=== PATIENT | female | born 1975 | race Native Hawaiian/Other Pacific Islander ===

== ENCOUNTER 2017-01-08 16:39 | Emergency (ER) | payer BC ==
[2017-01-08 16:52] VITALS: RESP 18; TEMP 98.4
[2017-01-08] MEDS ORDERED: SODIUM CHLORIDE 0.9% 1,000 ML IV STA ×2 (17:16)
[2017-01-08] MEDS ORDERED: PANTOPRAZOLE 40 MG/10 ML VIAL IVP STA (17:16)
--- NOTE | 2017-01-08 17:19 | ED ---
General Adult HPI - General Chief complaint: GI Bleed Stated complaint: Blood in Stool Time Seen by Provider: 01/08/17 17:09 Source: patient, RN notes reviewed Mode of arrival: ambulatory Limitations: no limitations - History of Present Illness Initial comments: Patient presented 41-year-old female significant past medical history for rheumatoid arthritis, fibromyalgia, who presents emergency room today with a chief complaint of black tarry stool that occurred this morning. Patient does admit that she currently does take methotrexate. She states she is a dosage to 10 mg just last night. Patient does admit that he noticed some cramping in her abdomen this morning and dark bowel movement. States she called her finance vice president who advised her to come here to the emergency room for further evaluation for possible GI bleed. Patient admits to history of a gastric sleeve. She admits to nausea. She denies any other complaints or symptoms. Patient denies any recent fever, chills, shortness of breath, chest pain, back pain, vomiting, numbness or tingling, dysuria or hematuria, constipation, headaches or visual changes, or any other complaints. - Related Data Home Medications Medication Instructions Recorded Confirmed Ferrous Sulfate [Feosol] 325 mg PO DAILY 01/08/17 01/08/17 Gabapentin [Neurontin] 300 mg PO HS 01/08/17 01/08/17 Multivitamins, Thera [Multivitamin 1 tab PO DAILY 01/08/17 01/08/17 (formulary)] traMADol HCL [Ultram] 50 mg PO BID PRN 01/08/17 01/08/17 Previous Rx's Medication Instructions Recorded Amoxicillin/Potassium Clav 1 each PO Q12HR #20 tab 01/08/17 [Augmentin 875-125 Tablet] Allergies Allergy/AdvReac Type Severity Reaction Status Date / Time ciprofloxacin [From Cipro] Allergy Swelling Verified 01/08/17 17:33 nitrofurantoin Allergy "numbness" Verified 01/08/17 17:33 [From Macrodantin] Sulfa (Sulfonamide Allergy Unknown Verified 01/08/17 17:33 Antibiotics) Childhood Review of Systems ROS Statement: Those systems with pertinent positive or pertinent negative responses have been documented in the HPI. ROS Other: All systems not noted in ROS Statement are negative. Past Medical History Past Medical History: Fibromyalgia Additional Past Medical History / Comment(s): kidney stones History of Any Multi-Drug Resistant Organisms: None Reported Past Surgical History: Bariatric Surgery, Cholecystectomy Additional Past Surgical History / Comment(s): D&C, lithrotripsy Past Psychological History: No Psychological Hx Reported Smoking Status: Light tobacco smoker Past Alcohol Use History: Occasional Past Drug Use History: None Reported General Exam - General Exam Comments Initial Comments: General: The patient is awake and alert, in no distress, and does not appear acutely ill. Eye: Pupils are equal, round and reactive to light, extra-ocular movements are intact. No nystagmus. There is normal conjunctiva bilaterally. No signs of icterus. Ears, nose, mouth and throat: There are moist mucous membranes and no oral lesions. Neck: The neck is supple, there is no tenderness or JVD. Cardiovascular: There is a regular rate and rhythm. No murmur, rub or gallop is appreciated. Respiratory: Lungs are clear to auscultation, respirations are non-labored, breath sounds are equal. No wheezes, stridor, rales, or rhonchi. Gastrointestinal: Soft, non-distended, non-tender abdomen without masses or organomegaly noted. There is no rebound or guarding present. No CVA tenderness. Bowel sounds are unremarkable. Musculoskeletal: Normal ROM, no tenderness. Strength 5/5. Sensation intact. Pulses equal bilaterally 2+. Neurological: A&O x 3. CN II-XII intact, There are no obvious motor or sensory deficits. Coordination appears grossly intact. Speech is normal. Skin: Skin is warm and dry and no rashes or lesions are noted. Psychiatric: Cooperative, appropriate mood & affect, normal judgment. Limitations: no limitations Course Vital Signs 01/08/17 16:50 Temperature 98.4 F Pulse Rate 84 Respiratory 18 Rate Blood Pressure 174/90 O2 Sat by Pulse 98 Oximetry Medical Decision Making - Medical Decision Making Case discussed in detail with attending physician Dr. Pedroza. 41-year-old female presented to the emergency room for black tarry stool times one earlier today. Does admit some cramping type pain in the abdomen. At this time patient reexamined and feels comfortable. Abdomen soft nontender. Labs been reviewed. Hemoglobin is 10.4. Compared to previous hemoglobin back in July of last year and is the exact same. Patient does admit to history of anemia and is on iron supplements. Patient increased methotrexate last night. At this time requiring is negative. Abdomen soft. Patient's vital stable. Patient's urinalysis does show positive nitrate. She admits some symptoms of dysuria will be started on antibiotic. Advised that antibiotic may cause diarrhea. Advised return if there is any obvious bloody bowel movements or any increase or worsening symptoms. Advised follow-up the family doctor in the next 2 days. - Lab Data Result diagrams: 01/08/17 17:30 01/08/17 17:30 Lab Results 01/08/17 01/08/17 01/08/17 Range/Units 17:30 17:30 17:30 WBC 6.8 (3.8-10.6) k/uL RBC 4.52 (3.80-5.40) m/uL Hgb 10.4 L (11.4-16.0) gm/dL Hct 34.6 (34.0-46.0) % MCV 76.5 L (80.0-100.0) fL MCH 22.9 L (25.0-35.0) pg MCHC 30.0 L (31.0-37.0) g/dL RDW 18.2 H (11.5-15.5) % Plt Count 331 (150-450) k/uL Neutrophils % 72 % Lymphocytes % 20 % Monocytes % 5 % Eosinophils % 1 % Basophils % 1 % Neutrophils # 4.8 (1.3-7.7) k/uL Lymphocytes # 1.3 (1.0-4.8) k/uL Monocytes # 0.3 (0-1.0) k/uL Eosinophils # 0.1 (0-0.7) k/uL Basophils # 0.1 (0-0.2) k/uL Hypochromasia Moderate Anisocytosis Slight Microcytosis Slight PT (9.0-12.0) sec INR (<1.1) APTT (22.0-30.0) sec Sodium 138 (137-145) mmol/L Potassium 4.3 (3.5-5.1) mmol/L Chloride 105 (98-107) mmol/L Carbon Dioxide 23 (22-30) mmol/L Anion Gap 10 mmol/L BUN 14 (7-17) mg/dL Creatinine 0.59 (0.52-1.04) mg/dL Est GFR (MDRD) Af Amer >60 (>60 ml/min/1.73 sqM) Est GFR (MDRD) Non-Af >60 (>60 ml/min/1.73 sqM) Glucose 85 (74-99) mg/dL Calcium 9.4 (8.4-10.2) mg/dL Total Bilirubin 0.5 (0.2-1.3) mg/dL AST 32 (14-36) U/L ALT 26 (9-52) U/L Alkaline Phosphatase 72 (38-126) U/L Total Protein 7.9 (6.3-8.2) g/dL Albumin 4.5 (3.5-5.0) g/dL Urine Color Urine Appearance (Clear) Urine pH (5.0-8.0) Ur Specific [place] (1.001-1.035) Urine Protein (Negative) Urine Glucose (UA) (Negative) Urine Ketones (Negative) Urine Blood (Negative) Urine Nitrite (Negative) Urine Bilirubin (Negative) Urine Urobilinogen (<2.0) mg/dL Ur Leukocyte Esterase (Negative) Urine RBC (0-5) /hpf Urine WBC (0-5) /hpf Ur Squamous Epith Cells (0-4) /hpf Urine Bacteria (None) /hpf Urine Mucus (None) /hpf Urine HCG, Qual (Not Detectd) Stool Occult Blood Negative (Negative) 01/08/17 01/08/17 01/08/17 Range/Units 17:30 17:30 17:30 WBC (3.8-10.6) k/uL RBC (3.80-5.40) m/uL Hgb (11.4-16.0) gm/dL Hct (34.0-46.0) % MCV (80.0-100.0) fL MCH (25.0-35.0) pg MCHC (31.0-37.0) g/dL RDW (11.5-15.5) % Plt Count (150-450) k/uL Neutrophils % % Lymphocytes % % Monocytes % % Eosinophils % % Basophils % % Neutrophils # (1.3-7.7) k/uL Lymphocytes # (1.0-4.8) k/uL Monocytes # (0-1.0) k/uL Eosinophils # (0-0.7) k/uL Basophils # (0-0.2) k/uL Hypochromasia Anisocytosis Microcytosis PT 10.2 (9.0-12.0) sec INR 1.0 (<1.1) APTT 23.7 (22.0-30.0) sec Sodium (137-145) mmol/L Potassium (3.5-5.1) mmol/L Chloride (98-107) mmol/L Carbon Dioxide (22-30) mmol/L Anion Gap mmol/L BUN (7-17) mg/dL Creatinine (0.52-1.04) mg/dL Est GFR (MDRD) Af Amer (>60 ml/min/1.73 sqM) Est GFR (MDRD) Non-Af (>60 ml/min/1.73 sqM) Glucose (74-99) mg/dL Calcium (8.4-10.2) mg/dL Total Bilirubin (0.2-1.3) mg/dL AST (14-36) U/L ALT (9-52) U/L Alkaline Phosphatase (38-126) U/L Total Protein (6.3-8.2) g/dL Albumin (3.5-5.0) g/dL Urine Color Yellow Urine Appearance Cloudy H (Clear) Urine pH 6.5 (5.0-8.0) Ur Specific [place] 1.013 (1.001-1.035) Urine Protein Negative (Negative) Urine Glucose (UA) Negative (Negative) Urine Ketones Negative (Negative) Urine Blood Moderate H (Negative) Urine Nitrite Positive H (Negative) Urine Bilirubin Negative (Negative) Urine Urobilinogen <2.0 (<2.0) mg/dL Ur Leukocyte Esterase Negative (Negative) Urine RBC 1 (0-5) /hpf Urine WBC 1 (0-5) /hpf Ur Squamous Epith Cells 3 (0-4) /hpf Urine Bacteria Many H (None) /hpf Urine Mucus Rare H (None) /hpf Urine HCG, Qual Not Detected (Not Detectd) Stool Occult Blood (Negative) Disposition Clinical Impression: UTI (urinary tract infection), Black stool Disposition: HOME SELF-CARE Condition: Good Instructions: Gastrointestinal Bleeding (ED) Additional Instructions: Please use antibiotics as prescribed. Please follow-up with family doctor in the next 2 days. Please return to emergency room if the symptoms increase or worsen or for any other concerns. Prescriptions: Amoxicillin/Potassium Clav [Augmentin 875-125 Tablet] 1 each PO Q12HR #20 tab Time of Disposition: 18:30
[2017-01-08 17:45] LABS: Anisocytosis Slight; Basophils # (A) 0.1 k/uL (0-0.2); Basophils % (A) 1 %; CH 23.2; CHCM 30.5; Eosinophils # (A) 0.1 k/uL (0-0.7); Eosinophils % (A) 1 %; HCT 34.6 % (34.0-46.0); HDW 2.77; HGB 10.4 gm/dL (11.4-16.0); Hypochromasia Moderate; Luc # (Auto) 0.11; Luc % (Auto) 2; Lymphocytes # (A) 1.3 k/uL (1.0-4.8); Lymphocytes % (A) 20 %; MCH 22.9 pg (25.0-35.0); MCV 76.5 fL (80.0-100.0); Mean Platelet Volume 7.3; Microcytosis Slight; Monocytes # (A) 0.3 k/uL (0-1.0); Monocytes % (A) 5 %; Neutrophils # (A) 4.8 k/uL (1.3-7.7); Neutrophils % (A) 72 %; RBC 4.52 m/uL (3.80-5.40); RDW 18.2 % (11.5-15.5); WBC 6.8 k/uL (3.8-10.6); WBC (Perox) 6.79
[2017-01-08 17:53] LABS: Appearance,Urine Cloudy (Clear); Bacteria,Urine Many /hpf; Bilirubin,Urine Negative (Negative); Glucose,Urine (UA) Negative (Negative); Ketones,Urine Negative (Negative); Leukocyte Esterase,Urine Negative (Negative); Mucus,Urine Rare /hpf; Nitrite,Urine Positive (Negative); PH, Urine 6.5 (5.0-8.0); Particle Count 7528; Protein,Urine Negative (Negative); RBC,Urine 1 /hpf (0-5); Specific Gravity,Urine 1.013 (1.001-1.035); Squamous Epithelial Cell,Urine 3 /hpf (0-4); UA Billing (MACRO vs. MICRO) MICRO; Urobilinogen,Urine <2.0 mg/dL (<2.0); WBC,Urine 1 /hpf (0-5)
[2017-01-08 17:55] LABS: ALT 26 U/L (9-52); AST 32 U/L (14-36); Alkaline Phosphatase 72 U/L (38-126); Anion Gap 10 mmol/L; Blood Urea Nitrogen 14 mg/dL (7-17); Calcium 9.4 mg/dL (8.4-10.2); Carbon Dioxide 23 mmol/L (22-30); Chloride 105 mmol/L (98-107); Glucose 85 mg/dL (74-99); Non-African American GFR(MDRD) >60 (>60 ml/min/1.73 sqM); Potassium 4.3 mmol/L (3.5-5.1); Sodium 138 mmol/L (137-145); Total Bilirubin 0.5 mg/dL (0.2-1.3); Total Protein 7.9 g/dL (6.3-8.2)
[2017-01-08 17:56] LABS: Partial Thromboplastin Time 23.7 sec (22.0-30.0); Prothrombin Time 10.2 sec (9.0-12.0)
--- NOTE | 2017-01-08 18:07 | XR ---
EXAMINATION TYPE: XR KUB DATE OF EXAM: 01/08/2017 5:58 PM CLINICAL HISTORY: Blood in stool today. History of gastric sleeve surgery. TECHNIQUE: Single supine KUB image of the abdomen is obtained. COMPARISON: None. FINDINGS: Some paucity of bowel gas is seen. Visualized gas is noted in nondistended small and large bowel loops. Pelvic phleboliths are present bilaterally. Lung bases are clear. No pneumoperitoneum is identified. Cholecystectomy clips are seen. Multilevel spurring and spine is present. There is spurr ing in both hip joints noted. IMPRESSION: Overall nonspecific favor nonobstructive bowel gas pattern.
[2017-01-08 18:41] VITALS: BP 159/84; PULSE 59
== END 2017-01-08 18:40 | disposition home or self-care (01) ==
LOC: EC 16:39
DX: N39.0 Urinary tract infection, site not specified (principal); R19.5 Other fecal abnormalities; R10.9 Unspecified abdominal pain; R11.0 Nausea; F17.200 Nicotine dependence, unspecified, uncomplicated; Z79.899 Other long term (current) drug therapy; Z88.1 Allergy status to other antibiotic agents; Z88.2 Allergy status to sulfonamides; Z88.8 Allergy status to other drugs, medicaments and biological substances
CPT/HCPCS: 36415; 80053; 85025; 85610; 85730; 82272; 81001; 81025; 74000; 99285; 96374; 96361; C9113

== ENCOUNTER → 2017-05-14 | Outpatient (CLI) | payer BC ==
[2017-05-14 15:02] LABS: Basophils % (A) 0 %; CH 22.7; CHCM 30.5; Eosinophils # (A) 0.1 k/uL (0-0.7); Eosinophils % (A) 2 %; HCT 32.8 % (34.0-46.0); HDW 2.75; HGB 10.4 gm/dL (11.4-16.0); Hypochromasia Marked; Luc # (Auto) 0.14; Luc % (Auto) 2; Lymphocytes # (A) 1.7 k/uL (1.0-4.8); Lymphocytes % (A) 23 %; MCH 23.8 pg (25.0-35.0); MCHC 31.9 g/dL (31.0-37.0); MCV 74.7 fL (80.0-100.0); Mean Platelet Volume 6.9; Microcytosis Slight; Monocytes # (A) 0.4 k/uL (0-1.0); Monocytes % (A) 5 %; Neutrophils # (A) 5.1 k/uL (1.3-7.7); Neutrophils % (A) 69 %; RBC 4.38 m/uL (3.80-5.40); WBC 7.4 k/uL (3.8-10.6); WBC (Perox) 7.91
== END | disposition home or self-care (01) ==
LOC: LABPAT 14:26
PROVIDERS: ATTEND Obstetrics & Gynecology
DX: Z01.812 Encounter for preprocedural laboratory examination (principal)
CPT/HCPCS: 85025

== ENCOUNTER 2017-05-17 06:34 | Day surgery (SDC) | payer BC ==
[2017-05-10 15:16] VITALS: BMI 29.2
--- NOTE | 2017-05-16 21:10 | P.HPOB ---
History of Present Illness H&P Date: 05/16/17 Chief Complaint: Menorrhagia with irregular cycle, dysmenorrhea This is a 42-year-old female 4 para 3 who presents for dilation and curettage with hysteroscopy and NovaSure endometrial ablation secondary to menorrhagia with irregular cycle and dysmenorrhea. She complains of an approximately 6 year history of heavy menses and intermenstrual spotting for a week before her menses. She also has abdominal cramping and painful intercourse for the last couple months. Her pelvic ultrasound showed a uterus measuring 10.8 x 5.8 x 5.4 cm with a heterogeneous pattern consistent with fibroids. She had a small complex cyst on her right ovary measuring 1.9 cm. Endometrial stripe thickness was 1.2 cm. Her menses are occurring approximately every 2-3 weeks and lasting at least 5 days with the second and third day very heavy. Obstetrical history: . History of 1 vaginal delivery and 2 deliveries. History of 1 miscarriage. Gynecologic history: She has a history of a tubal ligation. 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 Review of Systems Constitutional: Denies chills, Denies fever Eyes: denies blurred vision, denies pain Ears, nose, mouth and throat: Denies sore throat Cardiovascular: Denies chest pain, Denies shortness of breath Respiratory: Denies cough Gastrointestinal: Reports abdominal pain, Denies diarrhea, Denies nausea, Denies vomiting Genitourinary: Reports dysmenorrhea, Reports dyspareunia, Reports pelvic pain Menstruation: Reports cycle < 21 days, Reports menses variable, Reports period heavy Musculoskeletal: Reports low back pain, Reports muscle cramps, Reports myalgias Psychiatric: Denies anxiety, Denies depression Endocrine: Reports fatigue Past Medical History Past Medical History: Fibromyalgia, Rheumatoid Arthritis (RA) Additional Past Medical History / Comment(s): heavy frequent periods, hx of fibroids, kidney stones, hx of diabetes, htn, hyperlipidemia, none after 75lb wt loss post bariatric sx History of Any Multi-Drug Resistant Organisms: None Reported Past Surgical History: Bariatric Surgery, Section (Times 2), Cholecystectomy, Tubal Ligation Additional Past Surgical History / Comment(s): gastric sleeve, D&C, lithrotripsy , laproscopic sx Past Anesthesia/Blood Transfusion Reactions: Previous Problems w/ Anesthesia Additional Past Anesthesia/Blood Transfusion Reaction / Comment(s): woke up during sx, hx of H/A post op, and increased b/p Smoking Status: Current every day smoker Past Alcohol Use History: Occasional Past Drug Use History: None Reported - Past Family History Mother Family Medical History: Diabetes Mellitus, Hypertension Medications and Allergies Home Medications Medication Instructions Recorded Confirmed Type Gabapentin [Neurontin] 300 mg PO HS 01/08/17 05/10/17 History traMADol HCL [Ultram] 50 mg PO BID PRN 01/08/17 05/10/17 History HYDROcodone/APAP 5-325MG [Mooers 1 tab PO Q6HR PRN 05/10/17 05/10/17 History 5-325] Allergies Allergy/AdvReac Type Severity Reaction Status Date / Time ciprofloxacin [From Cipro] Allergy Swelling Verified 05/10/17 15:08 nitrofurantoin Allergy "numbness" Verified 05/10/17 15:08 [From Macrodantin] Sulfa (Sulfonamide Allergy Unknown Verified 05/10/17 15:08 Antibiotics) Childhood Exam Osteopathic Statement: *. No significant issues noted on an osteopathic structural exam other than those noted in the History and Physical/Consult. HEENT: Within normal limits Heart: Regular rate and rhythm Lungs: Clear to auscultation bilaterally Abdomen: Soft, nontender Pelvic exam: Uterus is slightly enlarged, nontender, and retroverted position. No adnexal masses or tenderness were noted. Extremities: Negative Homans Assessment and Plan (1) Menorrhagia with irregular cycle Status: Acute (2) Dysmenorrhea Status: Acute Plan: Proceed with dilation and curettage with hysteroscopy and NovaSure endometrial ablation. I have discussed the risks, benefits, and alternative therapies for the above- mentioned procedure and for both sedation/anesthesia as well as necessary blood products administration, if indicated, as they pertain to this patient. The patient has indicated her understanding and acceptance of the risks and procedures discussed.
[~2017-05-17 06:34] MED LIST: DEXAMETHASONE SOD PHOSPHATE 10 MG/ML 1 ML VIAL IV ONE; HYDROmorphone 1 MG/ML 1 ML SYRINGE IVP PRN; LACTATED RINGERS 1,000 ML IV SCH; MIDAZOLAM 2 MG/2 ML VIAL IV PRN; ONDANSETRON 4 MG/2 ML VIAL IVP ONE; Pre Op ABX Message 1 EACH MISC MISCELLANE ONE; SCOPOLAMINE 1.5MG/72HR PATCH TRANSDERM ONE
[2017-05-17 06:50] VITALS: RESP 16
[2017-05-17] MEDS ORDERED: LIDOCAINE 1% 20 ML VIAL (10MG/ML) FOR IV START INTRADERMA ONE (06:50)
[2017-05-17] MEDS ORDERED: PROPOFOL 10 MG/ML 20 ML VIAL IV ONE (07:19)
[2017-05-17] MEDS ORDERED: MIDAZOLAM 2 MG/2 ML VIAL ONE (07:19)
[2017-05-17] MEDS ORDERED: LIDOCAINE 1% INJ 10MG/ML (20 ML MDV) ONE (07:19)
[2017-05-17] MEDS ORDERED: fentaNYL (PF) 50 MCG/ML 2 ML AMP ONE (07:19)
[2017-05-17] MEDS ORDERED: LACTATED RINGERS 1,000 ML IV ONE (07:52)
[2017-05-17 08:02] VITALS: TEMP 97
[2017-05-17] MEDS ORDERED: ONDANSETRON 4 MG/2 ML VIAL IVP ONE (08:05)
--- NOTE | 2017-05-17 08:36 | P.OP ---
Date of Procedure: 05/17/17 Preoperative Diagnosis: Menorrhagia with irregular cycle, dysmenorrhea Postoperative Diagnosis: Same Procedure(s) Performed: Hysteroscopy with dilation and curettage and NovaSure endometrial ablation Implants: Anesthesia: other (Mask general) Surgeon: Karmen Seo Estimated Blood Loss (ml): 5 Pathology: other (Endometrial curettings) Condition: stable Disposition: same day Indications for Procedure: This is a 42-year-old female 4 para 3 who presents for dilation and curettage with hysteroscopy and NovaSure endometrial ablation secondary to menorrhagia with irregular cycle and dysmenorrhea. She complains of an approximately 6 year history of heavy menses and intermenstrual spotting for a week before her menses. She also has abdominal cramping and painful intercourse for the last couple months. Her pelvic ultrasound showed a uterus measuring 10.8 x 5.8 x 5.4 cm with a heterogeneous pattern consistent with fibroids. She had a small complex cyst on her right ovary measuring 1.9 cm. Endometrial stripe thickness was 1.2 cm. Her menses are occurring approximately every 2-3 weeks and lasting at least 5 days with the second and third day very heavy. Operative Findings: Uterus is mid position, sounded to 10 cm. Cervix is sounded to 3 cm. No adnexal masses are palpated. Upon hysteroscopy, a relatively uniform endometrial appearance was noted with some return of tissue. Both tubal ostia are visualized. A moderate to large amount of endometrial curettings are obtained. Description of Procedure: The patient is taken to the operating room. She is placed in the dorsal lithotomy position after general anesthesia was given. She is prepped and draped in the normal sterile fashion. Bladder is drained with a catheter and then removed. Pelvic exam is performed under anesthesia. Uterus is found to be mid position with no adnexal masses. She is placed in slight Trendelenburg position. A right angle retractor is used to visualize the cervix. The anterior lip of the cervix is grasped with a single-tooth tenaculum. Cervix is sounded to 3 cm. Uterus is sounded to 10 cm. Cervix is gently dilated with Stearns dilators until a hysteroscope could be passed. Hysteroscopy is performed using normal saline. The above noted findings are noted. Next a polyp forceps is introduced. A moderate amount of tissue was obtained. Next medium-sized size sharp curette was placed. May moderate to large amount of endometrial curettings were obtained. Next NovaSure array was inserted into the endometrial cavity. Length was set at 6.5 cm and width was determined to be 4.5 cm. Next cavity assessment was completed and passed on the first try. Next NovaSure array was fired at 161 [address] for 76 seconds. The array did have a vacuum care at approximately 6 seconds into the impression. The array was removed opened and inspected, and then reinserted. The cavity assessment then completed on the first try and the ablation was continued to a total of 76 seconds. Next the array was removed, inspected and then discarded. Next the hysteroscope was reinserted. Uniform charring was noted. Pictures were taken. Hysteroscope was removed. Single-tooth tenaculum was removed from the anterior lip of the cervix. Minimal bleeding was noted. All other instruments removed from the vagina. Sponge counts were correct. Patient is taken to recovery room in stable condition.
[2017-05-17 09:09] VITALS: BP 141/83; PULSE 74
== END 2017-05-17 09:30 | disposition home or self-care (01) ==
LOC: OR 06:34
PROVIDERS: ATTEND Obstetrics & Gynecology
DX: N92.0 Excessive and frequent menstruation with regular cycle (principal); N92.6 Irregular menstruation, unspecified; N94.6 Dysmenorrhea, unspecified; Z87.42 Personal history of other diseases of the female genital tract; F17.200 Nicotine dependence, unspecified, uncomplicated; Z98.84 Bariatric surgery status; M79.7 Fibromyalgia; M06.9 Rheumatoid arthritis, unspecified; Z79.899 Other long term (current) drug therapy; Z88.1 Allergy status to other antibiotic agents; Z88.2 Allergy status to sulfonamides
CPT/HCPCS: 88305; 58563; J2250; J1100; J2405; J2001; J3010; J1170; J2704

== ENCOUNTER → 2020-04-29 | Outpatient (CLI) | payer BC ==
--- NOTE | 2020-04-29 14:55 | US ---
EXAMINATION TYPE: US kidneys/renal and bladder DATE OF EXAM: 04/29/2020 COMPARISON: NONE CLINICAL HISTORY: N200 CALCULUS OF KIDNEY,R13.29 MICROSCOPIC HEMATURIA. Hematuria HX of stones. EXAM MEASUREMENTS: Right Kidney: 11 x 5.7 x 5.3 cm Left Kidney: 9.5 x 5.0 x 4.4 cm Right Kidney: No hydronephrosis or masses seen Left Kidney: No hydronephrosis or masses seen Bladder: wnl Bilateral Jets seen: Yes There is no evidence for hydronephrosis at this point in time. No nephrolithiasis is seen. No joselyn s are identified. The urinary bladder is anechoic. Bilateral ureteral jets are seen. IMPRESSION: No evidence of hydronephrosis or nephrolithiasis.
== END | disposition home or self-care (01) ==
LOC: RADUSWWP 14:19
PROVIDERS: ATTEND Family Medicine
DX: N20.0 Calculus of kidney (principal); R31.29 Other microscopic hematuria
CPT/HCPCS: 76770

== ENCOUNTER → 2022-10-03 | Outpatient (CLI) | payer BC ==
[2022-10-03 14:34] LABS: Basophils # (A) 0.04 X 10*3/uL (0.00-0.10); Basophils % (A) 0.8 %; Eosinophils # (A) 0.13 X 10*3/uL (0.04-0.35); Eosinophils % (A) 2.4 %; HCT 42.3 % (37.2-46.3); HGB 13.8 g/dL (12.0-15.0); Immature Grans, Automated 0.2 %; Lymphocytes # (A) 1.46 X 10*3/uL (0.90-5.00); Lymphocytes % (A) 27.5 %; MCH 28.8 pg (27.0-32.0); MCHC 32.6 g/dL (32.0-37.0); MCV 88.1 fL (80.0-97.0); Mean Platelet Volume 10.8 fL (9.5-12.2); Monocytes # (A) 0.43 X 10*3/uL (0.20-1.00); Monocytes % (A) 8.1 %; NRBC Per 100 WBC 0 /100 WBCS (0.0-0.0); Neutrophils # (A) 3.24 X 10*3/uL (1.80-7.70); Platelet Count 283 X 10*3/uL (140-440); RDW 12.7 % (11.5-14.5); WBC 5.31 X 10*3/uL (4.50-10.00)
[2022-10-03 14:55] LABS: ALT 22 U/L (8-44); AST 21 U/L (13-35); African American GFR (CKD) 119.8 (60.0-200.0); Albumin 4.6 g/dL (3.8-4.9); Albumin/Globulin Ratio 1.68 (1.60-3.17); Alkaline Phosphatase 64 U/L (41-126); BUN/Creat Ratio 16.95 Ratio (12.00-20.00); Blood Urea Nitrogen 11.8 mg/dL (9.0-27.0); Calcium 9.8 mg/dL (8.7-10.3); Carbon Dioxide 27.9 mmol/L (20.0-27.5); Chloride 102 mmol/L (96-109); Chol/HDL Ratio 2.13 Ratio; Globulin 2.8 g/dL (1.6-3.3); Glucose 94 mg/dL (70-110); LDL Cholesterol,Calculated 89.3 mg/dL (0.0-131.0); Non-African American GFR(CKD) 103.4 (60.0-200.0); Potassium 4.9 mmol/L (3.5-5.5); Sodium 141 mmol/L (135-145); Total Protein 7.4 g/dL (6.2-8.2); VLDL Calculation 14.02 mg/dL (5.00-40.00)
== END | disposition home or self-care (01) ==
LOC: LABWHC1 10:11
PROVIDERS: ATTEND Physician Assistant
DX: I10 Essential (primary) hypertension (principal); F41.1 Generalized anxiety disorder; D64.9 Anemia, unspecified; F17.210 Nicotine dependence, cigarettes, uncomplicated; M79.7 Fibromyalgia
CPT/HCPCS: 36415; 80053; 80061; 84443; 85025

== ENCOUNTER 2023-12-29 13:14 | Observation (INO) | payer BC ==
--- NOTE | 2023-12-29 13:54 | ED ---
General Adult HPI - General Source: patient Mode of arrival: ambulatory <Lencho Powers - Last Filed: 12/29/23 15:47> <José Miguel Marin - Last Filed: 12/29/23 18:55> - General Chief complaint: Chest Pain Stated complaint: High blood pressure, PARKER, CP Time Seen by Provider: 12/29/23 13:44 - History of Present Illness Initial comments: Dictation was produced using [employer] dictation software. please excuse any grammatical, word or spelling errors. Chief Complaint: 48-year-old female presents emergency department with chest pain and high blood pressure History of Present Illness: Patient 48-year-old female she has past medical hist ory of hypertension fibromyalgia and rheumatoid arthritis. Patient was at home she started to have some elevated blood pressure. She also had high blood pressure measurements at home for the last couple days with systolics measuring 190. Patient has history of hypertension takes multiple blood pressure medications. States that the pain is like an ache to her left anterior chest radiates into the left shoulder. No associated diaphoresis or nausea. Patient denies that this pain is sharp or severe. Patient [place] any history of cardiac disease. The ROS documented in this emergency department record has been reviewed and confirmed by me. Those systems with pertinent positive or negative responses have been documented in the HPI. All other systems are other negative and/or noncontributory. (Lencho Powers) - Related Data Home Medications Medication Instructions Recorded Confirmed Gabapentin [Neurontin] 300 mg PO HS 01/08/17 05/17/17 traMADol HCL [Ultram] 50 mg PO BID PRN 01/08/17 05/17/17 HYDROcodone/APAP 5-325MG [[place] 1 tab PO Q6HR PRN 05/10/17 05/17/17 5-325] Allergies Allergy/AdvReac Type Severity Reaction Status Date / Time ciprofloxacin [From Cipro] Allergy Swelling Verified 12/29/23 13:33 nitrofurantoin Allergy "numbness" Verified 12/29/23 13:33 [From Macrodantin] Sulfa (Sulfonamide Allergy Unknown Verified 12/29/23 13:33 Antibiotics) Childhood Review of Systems ROS Other: All systems not noted in ROS Statement are negative. <Lencho Powers - Last Filed: 12/29/23 15:47> ROS Other: All systems not noted in ROS Statement are negative. <José Miguel Marin Rahul - Last Filed: 12/29/23 18:55> ROS Statement: Those systems with pertinent positive or pertinent negative responses have been documented in the HPI. Past Medical History Past Medical History: Fibromyalgia, Rheumatoid Arthritis (RA) Additional Past Medical History / Comment(s): heavy frequent periods, hx of fibroids, kidney stones, hx of diabetes, htn, hyperlipidemia, none after 75lb wt loss post bariatric sx History of Any Multi-Drug Resistant Organisms: None Reported Past Surgical History: Bariatric Surgery, Cholecystectomy Additional Past Surgical History / Comment(s): gastric sleeve, D&C, lithrotri psy, laproscopic sx Past Anesthesia/Blood Transfusion Reactions: Previous Problems w/ Anesthesia Additional Past Anesthesia/Blood Transfusion Reaction / Comment(s): woke up during sx, hx of H/A post op, and increased b/p Past Psychological History: No Psychological Hx Reported Past Alcohol Use History: Occasional Past Drug Use History: None Reported - Past Family History Mother Family Medical History: Diabetes Mellitus, Hypertension <Lencho Powers - Last Filed: 12/29/23 15:47> General Exam <Lencho Powers - Last Filed: 12/29/23 15:47> - General Exam Comments Initial Comments: PHYSICAL EXAM: General Impression: Alert and oriented x3, not in acute distress HEENT: Normocephalic atraumatic, extra-ocular movements intact, pupils equal and reactive to light bilaterally, mucous membranes moist. Cardiovascular: Heart regular rate and rhythm Chest: Able to complete full sentences, no retractions, no tachypnea Abdomen: abdomen soft, non-tender, non-distended, no organomegaly Musculoskeletal: Pulses present and equal in all extremities, no peripheral edema Motor: no focal deficits noted Neurological: CN II-XII grossly intact, no focal motor or sensory deficits noted Skin: Intact with no visualized rashes Psych: Normal affect and mood (Lencho Powers) Course Vital Signs 12/29/23 12/29/23 12/29/23 13:28 16:06 17:50 Temperature 98.2 F 98.2 F Pulse Rate 74 64 67 Respiratory 18 17 20 Rate Blood Pressure 140/84 156/108 181/94 O2 Sat by Pulse 99 97 98 Oximetry EKG Findings - EKG Comments: EKG Findings:: My EKG interpretation: Ventricular rate 62, sinus rhythm,. 147, cures 97, QTc 388. No MD prolongation, no QTC prolongation, no ST or T-wave changes noted. Overall, this EKG is unremarkable <Lencho Powers - Last Filed: 12/29/23 15:47> Medical Decision Making - Lab Data Result diagrams: 12/29/23 14:30 12/29/23 14:30 <Lencho Powers - Last Filed: 12/29/23 15:47> - Lab Data Result diagrams: 12/29/23 14:30 12/29/23 14:30 <José Miguel Marin - Last Filed: 12/29/23 18:55> - Medical Decision Making Was pt. sent in by a medical professional or institution (, PA, RADIOLOGIC TECHNOLOGY INSTRUCTOR, urgent care, hospital, or detention...) When possible be specific @ -No Did you speak to anyone other than the patient for history (EMS, parent, family, police, friend...)? What history was obtained from this source @ -No Did you review nursing and triage notes (agree or disagree)? Why? @ -I reviewed and agree with nursing and triage notes Were old charts reviewed (outside hosp., previous admission, EMS record, old EKG, old radiological studies, urgent care reports/EKG's, detention records)? Report findings @ -No old charts were reviewed Differential Diagnosis (chest pain, altered mental status, abdominal pain women, abdominal pain men, vaginal bleeding, musculoskeletal, weakness, fever, dyspnea, syncope, headache, dizziness, GI bleed, back pain, seizure, CVA, palpatations, mental health)? @ -Differential Chest Pain: Stable Angina, Unstable Angina, STEMI, NSTEMI Aortic Dissection, Pneumothorax, Musculoskeletal, Esophageal Spasm GERD, Cholecystitis, Pancreatitis, Zoster, this is not meant to be an all-inclusive list. EKG interpreted by me (3pts min.). @ -See above X-rays interpreted by me (1pt min.). @ -Chest x-ray is nonacute CT interpreted by me (1pt min.). @ -None done U/S interpreted by me (1pt. min.). @ -None done What testing was considered but not performed or refused? (CT, X-rays, U/S, labs)? Why? @ -None What meds were considered but not given or refused? Why? @ -None Did you discuss the management of the patient with other professionals (professionals i.e. , PA, RADIOLOGIC TECHNOLOGY INSTRUCTOR, lab, RT, psych nurse, medical social worker, desulfurizer hand, teacher, radiation safety officer, case therapist)? Give summary @ -No Was smoking cessation discussed for >3mins.? @ -No Was critical care preformed (if so, how long)? @ -No Were there social determinants of health that impacted care today? How? (Homelessness, low income, unemployed, alcoholism, drug addiction, transportation, low edu. Level, literacy, decrease access to med. care, care home, rehab)? @ -No Was there de-escalation of care discussed even if they declined (Discuss DNR or withdrawal of care, Hospice)? DNR status @ -No What co-morbidities impacted this encounter? (DM, HTN, Smoking, COPD, CAD, Cancer, CVA, ARF, Chemo, Hep., AIDS, mental health diagnosis, sleep apnea, morbid obesity)? @ -None Was patient admitted / discharged? Hospital course, mention meds given and route, prescriptions, significant lab abnormalities, going to OR and other pert inent info. @ -48-year-old female presents to the emergency department atypical chest pain typical features. Vital signs upon arrival are within acceptable limits. Laboratory evaluation is unremarkable. Initial troponin is negative. Chest x- ray is nonacute. Disposition options were discussed with patient. Patient would like to obtain 3-hour troponin to determine final disposition. Patient care signed out to Dr. Marin at 4:00 PM Undiagnosed new problem with uncertain prognosis? @ -No Drug Therapy requiring intensive monitoring for toxicity (Heparin, Nitro, Insulin, Cardizem)? @ -No Were any procedures done? @ -No Diagnosis/symptom? Acute, or Chronic, or Acute on Chronic? Uncomplicated (without systemic symptoms) or Complicated (systemic symptoms)? @ -Chest pain Side effects of treatment? @ -No Exacerbation, Progression, or Severe Exacerbation? @ -No Poses a threat to life or bodily function? How? (Chest pain, USA, NC, pneumonia, PE, COPD, DKA, ARF, appy, cholecystitis, CVA, Diverticulitis, Homicidal, Suicidal, threat to staff... and all critical care pts) @ -yes (Lencho Powers) Patient will be observed for cardiac rule out, serial cardiac enzymes, telemetry, cardiology consultation. Case discussed with Pablo. (José Miguel Marin) - Lab Data Lab Results 12/29/23 12/29/23 12/29/23 Range/Units 14:30 14:30 14:30 WBC 5.6 (3.8-10.6) k/uL RBC 4.93 (3.80-5.40) m/uL Hgb 14.0 (11.4-16.0) gm/dL Hct 43.8 (34.0-46.0) % MCV 89.0 (80.0-100.0) fL MCH 28.5 (25.0-35.0) pg MCHC 32.0 (31.0-37.0) g/dL RDW 13.6 (11.5-15.5) % Plt Count 272 (150-450) k/uL MPV 8.8 Neutrophils % 68 % Lymphocytes % 23 % Monocytes % 5 % Eosinophils % 2 % Basophils % 1 % Neutrophils # 3.8 (1.3-7.7) k/uL Lymphocytes # 1.3 (1.0-4.8) k/uL Monocytes # 0.3 (0-1.0) k/uL Eosinophils # 0.1 (0-0.7) k/uL Basophils # 0.1 (0-0.2) k/uL PT 10.2 (10.0-12.5) sec INR 0.9 (<1.2) APTT 23.6 (22.0-30.0) sec D-Dimer 0.44 (<0.60) mg/L FEU Sodium 140 (137-145) mmol/L Potassium 4.1 (3.5-5.1) mmol/L Chloride 108 H (98-107) mmol/L Carbon Dioxide 25 (22-30) mmol/L Anion Gap 7 mmol/L BUN 10 (7-17) mg/dL Creatinine 0.54 (0.52-1.04) mg/dL Est GFR (CKD-EPI)AfAm >90 (>60 ml/min/1.73 sqM) Est GFR (CKD-EPI)NonAf >90 (>60 ml/min/1.73 sqM) Glucose 93 (74-99) mg/dL Calcium 9.9 (8.4-10.2) mg/dL Magnesium 1.9 (1.6-2.3) mg/dL Total Bilirubin 0.6 (0.2-1.3) mg/dL AST 25 (14-36) U/L ALT 22 (4-34) U/L Alkaline Phosphatase 78 (38-126) U/L Troponin I (0.000-0.034) ng/mL NT-Pro-B Natriuret Pep 75 pg/mL Total Protein 7.9 (6.3-8.2) g/dL Albumin 4.5 (3.5-5.0) g/dL 12/29/23 12/29/23 Range/Units 14:30 17:56 WBC (3.8-10.6) k/uL RBC (3.80-5.40) m/uL Hgb (11.4-16.0) gm/dL Hct (34.0-46.0) % MCV (80.0-100.0) fL MCH (25.0-35.0) pg MCHC (31.0-37.0) g/dL RDW (11.5-15.5) % Plt Count (150-450) k/uL MPV Neutrophils % % Lymphocytes % % Monocytes % % Eosinophils % % Basophils % % Neutrophils # (1.3-7.7) k/uL Lymphocytes # (1.0-4.8) k/uL Monocytes # (0-1.0) k/uL Eosinophils # (0-0.7) k/uL Basophils # (0-0.2) k/uL PT (10.0-12.5) sec INR (<1.2) APTT (22.0-30.0) sec D-Dimer (<0.60) mg/L FEU Sodium (137-145) mmol/L Potassium (3.5-5.1) mmol/L Chloride (98-107) mmol/L Carbon Dioxide (22-30) mmol/L Anion Gap mmol/L BUN (7-17) mg/dL Creatinine (0.52-1.04) mg/dL Est GFR (CKD-EPI)AfAm (>60 ml/min/1.73 sqM) Est GFR (CKD-EPI)NonAf (>60 ml/min/1.73 sqM) Glucose (74-99) mg/dL Calcium (8.4-10.2) mg/dL Magnesium (1.6-2.3) mg/dL Total Bilirubin (0.2-1.3) mg/dL AST (14-36) U/L ALT (4-34) U/L Alkaline Phosphatase (38-126) U/L Troponin I <0.012 <0.012 (0.000-0.034) ng/mL NT-Pro-B Natriuret Pep pg/mL Total Protein (6.3-8.2) g/dL Albumin (3.5-5.0) g/dL Disposition Is patient prescribed a controlled substance at d/c from ED?: No <Lencho Powers - Last Filed: 12/29/23 15:47> Is patient prescribed a controlled substance at d/c from ED?: No Time of Disposition: 18:55 <José Miguel Marin - Last Filed: 12/29/23 18:55> Clinical Impression: Chest pain Disposition: ADMITTED IP TO THIS HOSP Condition: Stable Instructions (If sedation given, give patient instructions): Chest Pain (ED) Referrals: Karthik Nielsen DO [Primary Care Provider] - 1-2 days
[2023-12-29 15:02] LABS: Basophils # (A) 0.1 k/uL (0-0.2); Basophils % (A) 1 %; Eosinophils # (A) 0.1 k/uL (0-0.7); Eosinophils % (A) 2 %; HCT 43.8 % (34.0-46.0); Lymphocytes # (A) 1.3 k/uL (1.0-4.8); Lymphocytes % (A) 23 %; MCH 28.5 pg (25.0-35.0); Mean Platelet Volume 8.8; Monocytes # (A) 0.3 k/uL (0-1.0); Monocytes % (A) 5 %; Neutrophils # (A) 3.8 k/uL (1.3-7.7); Neutrophils % (A) 68 %; Platelet Count 272 k/uL (150-450); RBC 4.93 m/uL (3.80-5.40); RDW 13.6 % (11.5-15.5); WBC 5.6 k/uL (3.8-10.6)
[2023-12-29 15:21] LABS: ALT 22 U/L (4-34); AST 25 U/L (14-36); African American GFR (CKD) >90 (>60 ml/min/1.73 sqM); Albumin 4.5 g/dL (3.5-5.0); Alkaline Phosphatase 78 U/L (38-126); Anion Gap 7 mmol/L; Blood Urea Nitrogen 10 mg/dL (7-17); Calcium 9.9 mg/dL (8.4-10.2); Carbon Dioxide 25 mmol/L (22-30); Chloride 108 mmol/L (98-107); Glucose 93 mg/dL (74-99); Magnesium 1.9 mg/dL (1.6-2.3); Non-African American GFR(CKD) >90 (>60 ml/min/1.73 sqM); Potassium 4.1 mmol/L (3.5-5.1); Sodium 140 mmol/L (137-145); Total Bilirubin 0.6 mg/dL (0.2-1.3); Total Protein 7.9 g/dL (6.3-8.2)
[2023-12-29 15:28] LABS: NT-Pro-B-Type Natriuretic Pept 75 pg/mL
[2023-12-29 15:30] LABS: INR 0.9 (<1.2); Partial Thromboplastin Time 23.6 sec (22.0-30.0); Prothrombin Time 10.2 sec (10.0-12.5)
[2023-12-29] MEDS: ASPIRIN 81 MG PO STA (16:03)
--- NOTE | 2023-12-29 16:20 | XR ---
EXAMINATION TYPE: XR chest 2V DATE OF EXAM: 12/29/2023 2:15 PM CLINICAL INDICATION:Female, 48 years old with history of pain; [facility] COMPARISON: None TECHNIQUE: XR chest 2V. Frontal and lateral views of the chest.. FINDINGS: Lines/Tubes/Devices: No indwelling lines are seen. Heart/mediastinum: Heart size upper normal. Mediastinum appears normal. Pulmonary vascularity: Not increased, Lungs/Pleura: There is no evidence of pleural effusion, focal consolidation, or pneumothorax. Musculoskeletal: No acute osseous abnormality demonstrated in the limits of the exam. Multilevel endplate spurring in the spine. Other findings: None. IMPRESSION: No acute cardiopulmonary abnormality.
[2023-12-29] MEDS: SODIUM CHLORIDE 0.9% 500 ML 500 ML IV ONE ×2 (18:32→22:24)
[2023-12-29] MEDS ORDERED: ONDANSETRON 4 MG/2 ML VIAL IVP PRN (18:50)
[2023-12-29] MEDS ORDERED: NALOXONE 0.4 MG/ML 1 ML VIAL IV PRN (18:50)
[2023-12-29] MEDS: METOPROLOL SUCCINATE (ER) 25 MG TAB.ER.24H PO STA (19:05)
[2023-12-29] MEDS: lisinopriL 20 MG TAB PO STA (19:05)
[2023-12-29 20:47] VITALS: RESP 16
[2023-12-29] MEDS: ACETAMINOPHEN TAB 325 MG TAB PO PRN (21:15)
[2023-12-29] MEDS: SODIUM CHLORIDE 0.9% 1,000 ML IV SCH (22:24)
[2023-12-29] MEDS: HYDROXYCHLOROQUINE SULFATE 200 MG TAB PO SCH (23:40)
[2023-12-29] MEDS: cloNIDine HCL 0.2 MG TAB PO PRN (23:40)
[2023-12-29] MEDS: GABAPENTIN 400 MG CAP PO SCH (23:40)
[2023-12-30] MEDS ORDERED: ALPRAZolam 0.5 MG TAB PO PRN (01:17)
--- NOTE | 2023-12-30 01:17 | P.HPIM ---
History of Present Illness H&P Date: 12/29/23 Chief Complaint: Chest pain 48-year-old female with rheumatoid arthritis, hypertension Patient coming into the hospital for evaluation of couple day history of chest pain off-and-on she describes no triggering factors episodes will happen randomly usually when she wakes up from sleep she feels some chest pressure she describes it as dull achy pain in the mid chest and left side up top today when she woke up from sleep pain was radiating to her left shoulder and neck she rates the pain as 5 out of 10 in severity associated with palpitations but denies any nausea vomiting shortness of breath dizziness lightheadedness or profuse sweating. She has been taking Tums and drinking pop thinking that she needs to burp and feels better with not much benefit today she took some aspirin then took a shower however pain persisted and then after she was done she took her blood pressure and found to be elevated she reports that her blood pressure has been on the higher end for the past couple weeks her doctor has adjusted her lisinopril dose up to 20 mg however today she took her blood pressure was 190/111 for which she decided to come into the hospital for evaluation Patient otherwise denies any slurred speech changes in hearing or vision denies any headache denies any focal neurodeficits. She denies any abdominal pain denies any changes in bowel or urinary habit denies any GI bleeding Patient denies any cardiac history she reports some remote stress test however she believes it was normal Patient denies any tobacco smoking illicit drugs or heavy alcohol Patient denies any recent travel or hospital stay denies any history of blood clots review of systems Pertinent positives as noted in HPI. All other systems were reviewed and are negative on exam Constitutional: No acute distress, conversant, pleasant Eyes: Anicteric sclerae, moist conjunctiva, Pupils equal round reactive to light ENMT: NC/AT Oropharynx clear, no erythema, or exudates Neck: Supple, no masses, or JVD No carotid bruits No thyromegaly Lungs: Clear to auscultation Clear to percussion Normal respiratory effort, no accessory muscle use Cardiovascular: Heart regular in rate and rhythm, No murmurs, gallops, or rubs No peripheral edema Abdominal: Soft Nontender, no guarding, rebound or rigidity Abdomen moving with respiration Normoactive bowel sounds Extremities: No digital cyanosis No clubbing Pedal pulses intact and symmetrical Radial pulses intact and symmetrical No calf tenderness Psychiatric: Alert and oriented to person, place and time Appropriate affect fair judgement Neuro Muscles Strength 5/5 in all 4 extremities Sensation to light touch grossly present throughout Cranial nerves II-XII grossly intact Past Medical History Past Medical History: Fibromyalgia, Rheumatoid Arthritis (RA) Additional Past Medical History / Comment(s): heavy frequent periods, hx of fibroids, kidney stones, hx of diabetes, htn, hyperlipidemia, none after 75lb wt loss post bariatric sx History of Any Multi-Drug Resistant Organisms: None Reported Past Surgical History: Bariatric Surgery, Cholecystectomy Additional Past Surgical History / Comment(s): gastric sleeve, D&C, lithrotripsy, laproscopic sx Past Anesthesia/Blood Transfusion Reactions: Previous Problems w/ Anesthesia Additional Past Anesthesia/Blood Transfusion Reaction / Comment(s): woke up during sx, hx of H/A post op, and increased b/p Past Psychological History: No Psychological Hx Reported Past Alcohol Use History: Occasional Past Drug Use History: None Reported - Past Family History Mother Family Medical History: Diabetes Mellitus, Hypertension Medications and Allergies Home Medications Medication Instructions Recorded Confirmed Type traMADol HCL [Ultram] 50 mg PO Q8H PRN 01/08/17 12/29/23 History Etanercept [Enbrel Mini] 50 mg SQ BEASLEY 12/29/23 12/29/23 History Gabapentin [Neurontin] 800 mg PO HS 12/29/23 12/29/23 History Hydroxychloroquine Sulfate 200 mg PO BID 12/29/23 12/29/23 History [Plaquenil] Leflunomide [Arava] 20 mg PO DAILY 12/29/23 12/29/23 History Metoprolol Succinate (ER) [Toprol 25 mg PO DAILY 12/29/23 12/29/23 History Xl] Semaglutide [Wegovy] 0.25 mg SQ DIRECTED 12/29/23 12/29/23 History lisinopriL [Zestril] 20 mg PO DAILY 12/29/23 12/29/23 History predniSONE 10 mg PO DAILY 12/29/23 12/29/23 History Allergies Allergy/AdvReac Type Severity Reaction Status Date / Time ciprofloxacin [From Cipro] Allergy Swelling Verified 12/29/23 19:05 Sulfa (Sulfonamide Allergy rash/face Verified 12/29/23 19:06 Antibiotics) swelling nitrofurantoin AdvReac "numbness" Verified 12/29/23 19:05 [From Macrodantin] Physical Exam Vitals: Vital Signs Temp Pulse Pulse Resp BP Pulse Ox 12/29/23 20:19 81 16 173/103 97 12/29/23 17:50 67 20 181/94 98 12/29/23 17:00 72 20 168/88 97 12/29/23 16:06 98.2 F 64 17 156/108 97 12/29/23 14:30 74 12/29/23 13:28 98.2 F 74 18 140/84 99 Intake and Output 12/29/23 12/29/23 12/29/23 06:59 14:59 22:59 Other: Weight 81.647 kg Results CBC & Chem 7: 12/29/23 14:30 12/29/23 14:30 Labs: Abnormal Lab Results - Last 24 Hours (Table) 12/29/23 Range/Units 14:30 Chloride 108 H (98-107) mmol/L Assessment and Plan Assessment: 48-year-old female with rheumatoid arthritis hypertension coming in for chest pain was found to have uncontrolled blood pressure discussed case with ED doctor and accepted the admission hypertensive emergency and chest pain with anticipated length of stay less than 2 midnights Chest pain rule out ACS Hypertensive emergency Continue with home medications metoprolol and lisinopril Add amlodipine 5 mg p.o. daily Clonidine 0.3 mg 4 times a day as needed for systolic blood pressure above 180 Close monitoring of vital signs Troponins 0.12 x [address] changes White count 5.6 hemoglobin 14 Sodium 140 potassium 4.1 BUN 10 creatinine 0.5 D-dimer unremarkable 0.44 Cardiology consult Rheumatoid arthritis Continue with Plaquenil and steroids Full code DVT prophylaxis Lovenox subcu daily 40 mg
[2023-12-30] MEDS: amLODIPine 5 MG TAB PO SCH (08:45)
[2023-12-30] MEDS: lisinopriL 20 MG TAB PO SCH (08:45)
[2023-12-30] MEDS: PANTOPRAZOLE 40 MG TABLET PO SCH (08:45)
[2023-12-30] MEDS: LEFLUNOMIDE 20 MG TAB PO SCH (08:45)
[2023-12-30] MEDS: CHLORTHALIDONE 25 MG TAB PO SCH (08:45)
[2023-12-30] MEDS: ENOXAPARIN 40 MG/0.4 ML SYRINGE SQ SCH (08:46)
[2023-12-30] MEDS: predniSONE 10 MG TAB PO SCH (08:46)
[2023-12-30] MEDS ORDERED: METOPROLOL SUCCINATE (ER) 25 MG TAB.ER.24H PO SCH (09:00)
--- NOTE | 2023-12-30 09:58 | P.CRDCN ---
History of Present Illness History of present illness: HISTORY OF PRESENT ILLNESS: This is a 48-year-old female with a past medical history significant for hypertension and rheumatoid arthritis. Patient does not follow with a fusing machine operator. We have been asked to see the patient in consultation for chest pain. Patient examined at the bedside. Patient states over the past 3 days she has been having indigestion type symptoms. She states that she felt like she constantly had to burp. She states the pain was intermittent. She states the p ain is usually worse when she woke up in the morning. She states yesterday the pain started to radiate into her shoulder. She checked her blood pressure at home and her systolic was noted to be 198. She does report that her prednisone was increased last Saturday by her jewelry sales representative. She states previously she was on a steroid taper which was not working, hence her prednisone dose was increased. Patient's blood pressures have been elevated since admission to the hospital. She currently denies chest pain or pressure. She denies shortness of breath. DIAGNOSTICS: - EKG reveals sinus mechanism with nonspecific ST-T wave changes. - Chest xray negative for acute process - Laboratory data: WBC 5.6. Hemoglobin 14.0. Platelet count 272. D-dimer 0.44. Sodium 140. Potassium 4.1. BUN 10. Creatinine 0.54. Troponin negative x 4. - Current home cardiac medications include metoprolol succinate 25 mg daily and lisinopril 20 mg daily. - Previous echocardiogram, stress test, or cardiac catheterization available in EMR for review REVIEW OF SYSTEMS: At the time of my exam: CONSTITUTIONAL: Denies fever or chills. HEENT: Denies blurred vision, vision changes, or eye pain. Denies hemoptysis CARDIOVASCULAR: Denies chest pain. Denies orthopnea. Denies PND. Denies palpitations RESPIRATORY: Denies shortness of breath. GASTROINTESTINAL: Denies abdominal pain. Denies nausea or vomiting. HEMATOLOGIC: Denies bleeding disorders. GENITOURINARY: Denies any blood in urine. SKIN: Denies pruitis. Denies rash. PHYSICAL EXAM: VITAL SIGNS: Reviewed. GENERAL: Well-developed in no acute distress. HEENT: Head is normocephalic. Pupils are equal, round. Sclerae anicteric. Mucous membranes of the mouth are moist. Neck supple. No JVD or thyromegaly LUNGS: Respirations even and unlabored. Lungs essentially clear to auscultation bilaterally. HEART: Regular rate and rhythm. S1 and S2 heard. ABDOMEN: Soft. Nondistended. Nontender. EXTREMITIES: Normal range of motion. No clubbing or cyanosis. Peripheral pulses intact. No lower extremity edema NEUROLOGIC: Awake and alert. Oriented x 3. ASSESSMENT: Hypertensive urgency, likely worsened by recent increased dose of prednisone Chest pain, troponin negative x 4, likely secondary to above History of rheumatoid arthritis History of hypertension Morbid obesity: BMI 34.0. PLAN: Acute coronary event has been ruled out Obtain 2D echo to assess cardiac structure and function Discontinue as needed clonidine Discontinue metoprolol Continue current dose of lisinopril Add chlorthalidone 25 mg daily Patient has been started on amlodipine per primary medicine. Agree with addition of amlodipine Continue to monitor blood pressure No plans for inpatient stress testing at this time Patient may be discharged home this afternoon pending blood pressure trends and echocardiogram results Further recommendations pending patient course Nurse practitioner note has been reviewed by physician. Signing provider agrees with the documented findings, assessment, and plan of care documented by CMM PROGRAMMER as a scribe. Past Medical History Past Medical History: Fibromyalgia, Rheumatoid Arthritis (RA) Additional Past Medical History / Comment(s): heavy frequent periods, hx of fibroids, kidney stones, hx of diabetes, htn, hyperlipidemia, none after 75lb wt loss post bariatric sx History of Any Multi-Drug Resistant Organisms: None Reported Past Surgical History: Bariatric Surgery, Cholecystectomy Additional Past Surgical History / Comment(s): gastric sleeve, D&C, lithrotripsy, laproscopic sx Past Anesthesia/Blood Transfusion Reactions: Previous Problems w/ Anesthesia Additional Past Anesthesia/Blood Transfusion Reaction / Comment(s): woke up during sx, hx of H/A post op, and increased b/p Past Psychological History: No Psychological Hx Reported Past Alcohol Use History: Occasional Past Drug Use History: None Reported - Past Family History Mother Family Medical History: Diabetes Mellitus, Hypertension Medications and Allergies Home Medications Medication Instructions Recorded Confirmed Type traMADol HCL [Ultram] 50 mg PO Q8H PRN 01/08/17 12/29/23 History Etanercept [Enbrel Mini] 50 mg SQ BEASLEY 12/29/23 12/29/23 History Gabapentin [Neurontin] 800 mg PO HS 12/29/23 12/29/23 History Hydroxychloroquine Sulfate 200 mg PO BID 12/29/23 12/29/23 History [Plaquenil] Leflunomide [Arava] 20 mg PO DAILY 12/29/23 12/29/23 History Metoprolol Succinate (ER) [Toprol 25 mg PO DAILY 12/29/23 12/29/23 History Xl] Semaglutide [Wegovy] 0.25 mg SQ DIRECTED 12/29/23 12/29/23 History lisinopriL [Zestril] 20 mg PO DAILY 12/29/23 12/29/23 History predniSONE 10 mg PO DAILY 12/29/23 12/29/23 History Allergies Allergy/AdvReac Type Severity Reaction Status Date / Time ciprofloxacin [From Cipro] Allergy Swelling Verified 12/29/23 19:05 Sulfa (Sulfonamide Allergy rash/face Verified 12/29/23 19:06 Antibiotics) swelling nitrofurantoin AdvReac "numbness" Verified 12/29/23 19:05 [From Macrodantin] Physical Exam Vitals: Vital Signs Temp Pulse Pulse Resp BP Pulse Ox 12/30/23 06:39 69 16 121/86 97 12/30/23 05:01 65 16 115/74 97 12/30/23 01:14 75 16 140/71 98 12/30/23 00:23 76 16 169/101 98 12/29/23 23:41 77 16 185/109 98 12/29/23 22:24 81 16 180/109 98 12/29/23 20:19 81 16 173/103 97 12/29/23 17:50 67 20 181/94 98 12/29/23 17:00 72 20 168/88 97 12/29/23 16:06 98.2 F 64 17 156/108 97 12/29/23 14:30 74 12/29/23 13:28 98.2 F 74 18 140/84 99 Results 12/29/23 14:30 12/29/23 14:30 Cardiac Enzymes 12/29/23 12/29/23 12/29/23 Range/Units 14:30 14:30 17:56 AST 25 (14-36) U/L Troponin I <0.012 <0.012 (0.000-0.034) ng/mL 04/21/24 04/22/24 Range/Units 21:04 00:17 AST (14-36) U/L Troponin I <0.012 <0.012 (0.000-0.034) ng/mL Coagulation 12/29/23 Range/Units 14:30 PT 10.2 (10.0-12.5) sec APTT 23.6 (22.0-30.0) sec CBC 12/29/23 Range/Units 14:30 WBC 5.6 (3.8-10.6) k/uL RBC 4.93 (3.80-5.40) m/uL Hgb 14.0 (11.4-16.0) gm/dL Hct 43.8 (34.0-46.0) % Plt Count 272 (150-450) k/uL Comprehensive Metabolic Panel 12/29/23 Range/Units 14:30 Sodium 140 (137-145) mmol/L Potassium 4.1 (3.5-5.1) mmol/L Chloride 108 H (98-107) mmol/L Carbon Dioxide 25 (22-30) mmol/L BUN 10 (7-17) mg/dL Creatinine 0.54 (0.52-1.04) mg/dL Glucose 93 (74-99) mg/dL Calcium 9.9 (8.4-10.2) mg/dL AST 25 (14-36) U/L ALT 22 (4-34) U/L Alkaline Phosphatase 78 (38-126) U/L Total Protein 7.9 (6.3-8.2) g/dL Albumin 4.5 (3.5-5.0) g/dL Current Medications Generic Name Dose Route Start Last Admin Trade Name Freq PRN Reason Stop Dose Admin Acetaminophen 650 mg 12/29/23 18:50 12/29/23 21:15 Acetaminophen Tab 325 Mg Tab PO 650 mg Q6HR PRN Administration Mild Pain or Fever > 100.5 Alprazolam 0.5 mg 12/30/23 01:17 Alprazolam 0.5 Mg Tab PO TID PRN Anxiety Amlodipine Besylate 5 mg 12/30/23 09:00 Amlodipine 5 Mg Tab PO DAILY [facility] Enoxaparin Sodium 40 mg 12/30/23 09:00 Enoxaparin 40 Mg/0.4 Ml Syringe SQ DAILY [facility] Gabapentin 800 mg 12/29/23 23:45 12/29/23 23:40 Gabapentin 400 Mg Cap PO 800 mg HS HERI Administration Hydroxychloroquine Sulfate 200 mg 12/29/23 23:45 12/29/23 23:40 Hydroxychloroquine Sulfate 200 Mg Tab PO Not Given BID [facility] Sodium Chloride 1,000 mls @ 75 mls/hr 12/29/23 22:30 12/29/23 22:24 Saline 0.9% IV 75 mls/hr .[id number] HERI Administration Leflunomide 20 mg 12/30/23 09:00 Leflunomide 20 Mg Tab PO DAILY [facility] Lisinopril 20 mg 12/30/23 09:00 Lisinopril 20 Mg Tab PO DAILY [facility] Metoprolol Succinate 25 mg 12/30/23 09:00 Metoprolol Succinate (Er) 25 Mg Tab.Er.24h PO DAILY [facility] Naloxone HCl 0.2 mg 12/29/23 18:50 Naloxone 0.4 Mg/Ml 1 Ml Vial IV Q2M PRN Opioid Reversal Ondansetron HCl 4 mg 12/29/23 18:50 Ondansetron 4 Mg/2 Ml Vial IVP Q8HR PRN Nausea And Vomiting Pantoprazole Sodium 40 mg 12/30/23 07:30 Pantoprazole 40 Mg Tablet PO AC-[id number] [facility] Prednisone 10 mg 12/30/23 09:00 Prednisone 10 Mg Tab PO DAILY [facility] 12/29/23 14:30 12/29/23 14:30
--- NOTE | 2023-12-30 14:24 | P.DS ---
Providers Date of admission: 12/29/23 18:51 Attending physician: Namrata Aguero MD Consults: 12/29/23 18:50 Consult Physician Routine Consulting Provider: Deondre Moses Consult Reason/Comments: CP Do you want consulting provider notified?: Yes [facility] Course: Hospital course Patient is a 48-year-old female with a past medical history of rheumatoid arthritis and hypertension who presented to the ED with chest pain. Patient also reports that she has been having a difficult time managing her blood pressure. She states that her PCP recently increased her lisinopril. She states that prior to coming in her blood pressure was 190/111. In the ED patient had 2 troponins that were negative. However since the patient continuesd to have persistent chest pain she was referred for admission to be evaluated by cardiology. Patient was seen by cardiology who believe her chest pain is likely due to the hypertension urgency. During hospitalization patient's maximum blood pressure was 185/109. Cardiology discontinued as needed clonidine and metoprolol. Patient was started on chlorthalidone. Patient also started on amlodipine. Patient at the time of discharge her blood pressure was much better controlled. At the time of discharge her chest pain had resolved. Echocardiogram is pending at the time of discharge. Patient wants to go home because she has to catch a flight to go to [place] for a . Patient instructed to follow-up with cardiology outpatient. 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 4 extremities spontaneously Psych - Calm and cooperative Discharge diagnoses Hypertension urgency Chest pain likely due to hypertension urgency History of rheumatoid arthritis History of hypertension Morbid obesity Patient Condition at Discharge: Stable Plan - Discharge Summary Discharge Rx Participant: No New Discharge Prescriptions: New Chlorthalidone [Hygroton] 25 mg PO DAILY 30 Days #30 tab amLODIPine [Norvasc] 5 mg PO DAILY 30 Days #30 tab Continue traMADol HCL [Ultram] 50 mg PO Q8H PRN PRN Reason: Pain predniSONE 10 mg PO DAILY Semaglutide [Wegovy] 0.25 mg SQ DIRECTED lisinopriL [Zestril] 20 mg PO DAILY Gabapentin [Neurontin] 800 mg PO HS Leflunomide [Arava] 20 mg PO DAILY Hydroxychloroquine Sulfate [Plaquenil] 200 mg PO BID Etanercept [Enbrel Mini] 50 mg SQ BEASLEY Discontinued Metoprolol Succinate (ER) [Toprol Xl] 25 mg PO DAILY Discharge Medication List traMADol HCL [Ultram] 50 mg PO Q8H PRN 01/08/17 [History] Etanercept [Enbrel Mini] 50 mg SQ BEASLEY 12/29/23 [History] Gabapentin [Neurontin] 800 mg PO HS 12/29/23 [History] Hydroxychloroquine Sulfate [Plaquenil] 200 mg PO BID 12/29/23 [History] Leflunomide [Arava] 20 mg PO DAILY 12/29/23 [History] Semaglutide [Wegovy] 0.25 mg SQ DIRECTED 12/29/23 [History] lisinopriL [Zestril] 20 mg PO DAILY 12/29/23 [History] predniSONE 10 mg PO DAILY 12/29/23 [History] Chlorthalidone [Hygroton] 25 mg PO DAILY 30 Days #30 tab 12/30/23 [Rx] amLODIPine [Norvasc] 5 mg PO DAILY 30 Days #30 tab 12/30/23 [Rx] Follow up Appointment(s)/Referral(s): Nicola Yadav MD [STAFF PHYSICIAN] - 1 Week Karthik Nielsen DO [Primary Care Provider] - 1-2 days Patient Instructions/Handouts: Chest Pain (ED) Discharge Disposition: HOME SELF-CARE
[2023-12-30 14:27] VITALS: BP 118/77; PULSE 71; TEMP 98.2
--- NOTE | 2023-12-30 19:45 | CA ---
Transthoracic Echo Report Name: Clotilde Figueroa Age: 48 Gender: F : 1975 Exam Date: 12/30/2023 10:43 Exam Location: [facility] Ht (in): 61 Wt (lb): 180 Ordering Physician: Marialuisa Burrows Attending/Referring Phys: [id number], Stormy Electric Train Driver Dorothy Silveira RDCS Procedure CPT: Indications: LV function, CP Cardiac Hx: Technical Quality: Fair Contrast 1: Total Dose (mL): Contrast 2: Total Dose (mL): MEASUREMENTS (Male / Female) Normal Values 2D ECHO LV Diastolic Diameter PLAX 3.2 cm 4.2 - 5.9 / 3.9 - 5.3 cm LV Systolic Diameter PLAX 2.0 cm IVS Diastolic Thickness 1.3 cm 0.6 - 1.0 / 0.6 - 0.9 cm LVPW Diastolic Thickness 1.4 cm 0.6 - 1.0 / 0.6 - 0.9 cm LV Relative Wall Thickness 0.9 RV Internal Dim ED PLAX 3.3 cm LA Volume 53.2 cm??? 18 - 58 / 22 - 52 cm??? LA Volume Index 27.8 cm???/m??? 16 - 28 cm???/m??? M-MODE Aortic Root Diameter MM 2.6 cm LA Systolic Diameter MM 3.9 cm LA Ao Ratio MM 1.5 AV Cusp Separation MM 1.6 cm DOPPLER AV Peak Velocity 153.3 cm/s AV Peak Gradient 9.4 mmHg AV Mean Velocity 105.2 cm/s AV Mean Gradient 4.9 mmHg AV Velocity Time Integral 28.4 cm LVOT Peak Velocity 106.3 cm/s LVOT Peak Gradient 4.5 mmHg LVOT Velocity Time Integral 21.1 cm MV Area PHT 2.1 cm??? Mitral E Point Velocity 76.3 cm/s Mitral A Point Velocity 92.8 cm/s Mitral E to A Ratio 0.8 MV Deceleration Time 370.0 ms MV E' Velocity 7.7 cm/s Mitral E to MV E' Ratio 9.9 TR Peak Velocity 161.9 cm/s TR Peak Gradient 10.5 mmHg Right Ventricular Systolic Press 15.5 mmHg FINDINGS Left Ventricle Mildly increased left ventricular wall thickness. Left ventricular cavity size normal. Normal left ventricular systolic function with no obvious regional wall motion abnormalities. Left ventricular ejection fraction is estimated at 55-60 %. Grade 1 diastolic dysfunction. Right Ventricle Normal right ventricular size and function. Right Atrium Normal right atrial size. Left Atrium Mildly increased left atrial volume. Mitral Valve Structurally normal mitral valve. Mild mitral regurgitation. Aortic Valve Trileaflet aortic valve. No aortic valve stenosis or regurgitation. Tricuspid Valve Structurally normal tricuspid valve. Mild tricuspid regurgitation. Pulmonic Valve Structurally normal pulmonic valve. Pericardium No pericardial effusion. Aorta Normal size aortic root and proximal ascending aorta. CONCLUSIONS Pericardial thickening without effusion Preserved LV and RV size and function Previewed by: Dr. Nicola Yadav MD (Electronically Signed) Final Date: 30 December 2023 19:44
== END 2023-12-30 16:37 | disposition home or self-care (01) ==
LOC: EC 13:14 → 6NMEDSUR 18:51
PROVIDERS: ADMIT Internal Medicine; ATTEND Internal Medicine
DX: I16.0 Hypertensive urgency (principal); R07.9 Chest pain, unspecified; I10 Essential (primary) hypertension; E78.5 Hyperlipidemia, unspecified; E11.9 Type 2 diabetes mellitus without complications; M06.9 Rheumatoid arthritis, unspecified; E66.01 Morbid (severe) obesity due to excess calories; Z68.34 Body mass index [BMI] 34.0-34.9, adult; Z79.899 Other long term (current) drug therapy; Z88.1 Allergy status to other antibiotic agents; Z88.2 Allergy status to sulfonamides
CPT/HCPCS: 96372; 96360; 96361; 99285; 36415; 93005; 93306; 85379; 83880; 80053; 83735; 84484 ×2; 85025; 85610; 85730; 71046; G0378 ×2; J1650

== ENCOUNTER → 2025-03-17 | Outpatient (CLI) | payer BC ==
--- NOTE | 2025-03-18 15:08 | MM ---
Reason for Exam: Screening (asymptomatic). Patient History: Menarche at age 9. First Full-Term at age 24. 2015, Ultrasound-Guided Core Biopsy on the Left side. Risk Values: Sultana 5 year model risk: 0.8%. NCI Lifetime model risk: 7.3%. Prior Study Comparison: No prior studies available for comparison. Tissue Density: There are scattered areas of fibroglandular density. Findings: Analyzed By CAD. A 9 mm focal asymmetry in the central left breast middle depth is noted on MLO view. No corresponding abnormality is clearly seen on cc view. Overall Assessment: Incomplete: need additional imaging evaluation, BI-RAD 0 Management: Special View Mammogram of the left breast. Return for additional spot 3-D MLO and 3-D true views left breast. Patient should continue monthly self-breast exams. A clinical breast exam by your physician is recommended on an annual basis. This exam should not preclude additional follow-up of suspicious palpable abnormalities. Note on Sultana scores and lifetime risk: 1. A Sultana score greater than 3% is considered moderate risk. If this is the case, consider specialist referral to assess eligibility for a risk reducing agent. 2. If overall lifetime risk for the development of breast cancer is 20% or higher, the patient may qualify for future screening with alternating mammogram and breast MRI. [facility], , 03/18/2025 3:05 PM. Electronically signed and approved by: Moises Bautista M.D.
== END | disposition home or self-care (01) ==
LOC: RADMAMWWP 10:23
PROVIDERS: ATTEND Family Medicine
DX: Z12.31 Encounter for screening mammogram for malignant neoplasm of breast (principal); R92.323 Mammographic fibroglandular density, bilateral breasts
CPT/HCPCS: 77063; 77067

== ENCOUNTER → 2025-03-23 | Outpatient (CLI) | payer BC ==
--- NOTE | 2025-03-23 08:50 | MM ---
Reason for Exam: Additional evaluation requested from abnormal screening. Last screening mammogram was performed less than 1 month ago. Patient History: Menarche at age 9. First Full-Term at age 24. 2014, Ultrasound-Guided Core Biopsy on the Left side. Risk Values: Sultana 5 year model risk: 0.8%. NCI Lifetime model risk: 7.3%. Prior Study Comparison: 03/17/2025 Bilateral MG 3D screening mammo w/cad, [facility]. Tissue Density: Left: The breasts are heterogeneously dense, which may obscure small masses. Findings: Analyzed By CAD. Nodular density is less conspicuous on additional imaging. Precautionary six-month follow-up mammography is recommended. Overall Assessment: Probably benign, BI-RAD 3 Management: Diagnostic Mammogram of the left breast in 6 months. . Results were given to the patient verbally at the time of exam. Patient should continue monthly self-breast exams. A clinical breast exam by your physician is recommended on an annual basis. This exam should not preclude additional follow-up of suspicious palpable abnormalities. Note on Sultana scores and lifetime risk: 1. A Sultana score greater than 3% is considered moderate risk. If this is the case, consider specialist referral to assess eligibility for a risk reducing agent. 2. If overall lifetime risk for the development of breast cancer is 20% or higher, the patient may qualify for future screening with alternating mammogram and breast MRI. [facility], , 03/23/2025 8:46 AM. Electronically signed and approved by: Aravind Mancuso M.D. Radiologis
== END | disposition home or self-care (01) ==
LOC: RADMAMWWP 08:11
PROVIDERS: ATTEND Family Medicine
DX: R92.8 Other abnormal and inconclusive findings on diagnostic imaging of breast (principal); R92.332 Mammographic heterogeneous density, left breast
CPT/HCPCS: 77061; 77065